=== PATIENT | female | born 1970 ===

== ENCOUNTER 2025-10-07 07:00 | Day surgery (SDC) | payer OTHER ==
[2025-09-29 13:15] VITALS: BP 108/67
[~2025-10-07] VITALS: Ht 172.7 cm; Wt 93.4 kg
[~2025-10-07 07:00] MED LIST: COZAAR100 MG PO; FARXIGA10 MG PO; SIMVASTATIN5 MG PO; ZETIA10 MG PO
[2025-10-07] MEDS ORDERED: CLINDAMYCIN PHOSPHATE 150 MG/ML (900mg) ONE (08:03)
== END 2025-10-07 11:45 | disposition home or self-care (01) ==
LOC: CIR.AMB 07:00
PROVIDERS: ATTEND Surgery Surgery of the Hand
DX: M67.843 Other specified disorders of tendon, right hand (principal)